=== PATIENT | male | born 1980 ===

== ENCOUNTER 2016-11-23 12:57 | Emergency (ER) | payer OTHER ==
[2016-11-23 13:10] VITALS: BP 132/82; PULSE 106; RESP 18; TEMP 97.9; O2SAT 100
[2016-11-23] MEDS ORDERED: Silver Sulfadiazine 1% Cream (20 gm) TOP STA (13:49)
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
== END 2016-11-23 14:33 | disposition home or self-care (01) ==
LOC: C.ER 12:57
DX: T22.212A Burn of second degree of left forearm, initial encounter (principal); X10.2XXA Contact with fats and cooking oils, initial encounter; Y93.G3 Activity, cooking and baking; Y92.009 Unspecified place in unspecified non-institutional (private) residence as the place of occurrence of the external cause

== ENCOUNTER 2016-12-11 09:32 | Inpatient (IN) | payer OTHER ==
[2016-12-11] MEDS ORDERED: Sodium Chloride 0.9% 1,000 ML IV STA (10:39)
[2016-12-11] MEDS ORDERED: Tetanus/Diphtheria Toxoids 0.5 ml Syringe IM ONE (10:40)
[2016-12-11] MEDS ORDERED: Sodium Chloride 0.9% 1,000 ML ONE (10:47)
--- NOTE | 2016-12-11 11:04 | C.PDOC ---
History Of Present Illness 36 y/o male presents to ED for evaluation of puncture wound to left hand. Patient states he was at work and accidentally hurt himself with a metal sustaining a puncture wound to palm of hand on Saturday. Patient reports wound has white discharge and the hand has become swollen and cannot move it secondary to pain. Patient denies fever, chills, numbness, tingling or any other complaints at this time. Unknown Last Tetanus vaccine Time Seen by Provider: 12/11/16 10:20 Chief Complaint (Nursing): Abnormal Skin Integrity History Per: Patient History/Exam Limitations: no limitations Onset/Duration Of Symptoms: Days Location Of Injury: Left: Hand Quality Of Symptoms: Painful, Swollen Past Medical History Reviewed: Historical Data, Nursing Documentation, Vital Signs Vital Signs: Last Vital Signs Temp 98.9 F 12/11/16 09:48 Pulse 91 H 12/11/16 09:48 Resp 18 12/11/16 09:48 BP 127/78 12/11/16 09:48 Pulse Ox 97 12/11/16 11:15 - Medical History PMH: Gastritis Surgical History: No Surg Hx - [facility] Procedures INJECT/INFUSE NEC (01/29/14) Family History: States: Unknown Family Hx - Social History Hx Tobacco Use: Yes Hx Alcohol Use: Yes Hx Substance Use: Yes - Immunization History Hx Tetanus Toxoid Vaccination: No Hx Influenza Vaccination: No Hx Pneumococcal Vaccination: No Review Of Systems Except As Marked, All Systems Reviewed And Found Negative. Constitutional: Negative for: Fever, Chills Musculoskeletal: Positive for: Hand Pain Skin: Negative for: Rash Physical Exam - Physical Exam Appears: Non-toxic, Other (uncomfortable) Skin: Warm, No Rash, Other (erythematous puncture wound to left palm of hand) Head: Atraumatic, Normacephalic Eye(s): bilateral: Normal Inspection Nose: Normal Oral Mucosa: Moist Neck: Normal ROM, Supple Chest: Symmetrical Extremity: Tenderness (left hand), Capillary Refill, Swelling (left hand), Other (decreased ability to move fingers of the left hand secondary to swelling and pain, palmar puncture wound, no draingea, hand erythema, swelling and tenderness) Extremity: Right: Normal ROM Pulses: Left Radial: Normal, Right Radial: Normal Neurological/Psych: Oriented x3, Normal Speech, Normal Sensation ED Course And Treatment - Laboratory Results Result Diagrams: 12/11/16 11:05 12/11/16 11:05 O2 Sat by Pulse Oximetry: 97 (RA) Pulse Ox Interpretation: Normal Progress Note: IV fluids, Blood work, Tetanus Vaccine, Clindamycin IV, Zosyn IV. Case was d/w Hand surgeon who recommended Zosyn IV, no additional imaging studies are recommended, she will see patient and decide if surgical treatment is needed. Case was d/w Hospitalist who accepted patient to med/surg for observation. Disposition - Disposition Disposition: HOSPITALIZED Disposition Time: 12:35 Condition: FAIR Forms: [facility] (Hungarian) - Clinical Impression Clinical Impression: Puncture wound of left hand with infection - PA / NON DESTRUCTIVE TESTING TECHNICIAN / Resident Statement MD/DO has reviewed & agrees with the documentation as recorded. - Scribe Statement The provider has reviewed the documentation as recorded by the Scribe Gela Flores All medical record entries made by the Scribe were at my direction and personally dictated by me. I have reviewed the chart and agree that the record accurately reflects my personal performance of the history, physical exam, medical decision making, and the department course for this patient. I have also personally directed, reviewed, and agree with the discharge instructions and disposition. Decision To Admit - Pt Status Changed To: Hospital Disposition Of: Observation - . Bed Request Type: Regular Admitting Physician: Jorje Dobson Patient Diagnosis: Puncture wound of left hand with infection
[2016-12-11 11:13] LABS: BASO # 0.1 K/uL (0.0-0.2); EOS # 0.5 K/uL (0.0-0.7); EOS % 4.8 % (0.0-4.0); HEMATOCRIT 39.1 % (35.0-51.0); LYMPH # 1.4 K/uL (1.0-4.3); LYMPH % 12.7 % (20.0-40.0); MEAN CELL VOLUME 95.8 fL (80.0-94.0); MEAN CORPUSCULAR HEMOGLOBIN 32.9 pg (27.0-31.0); MEAN CORPUSCULAR HGB CONC 34.4 g/dL (33.0-37.0); MEAN PLATELET VOLUME 8.1 fL (7.2-11.7); MONO # 1.1 K/uL (0.0-0.8); MONO % 9.9 % (0.0-10.0); RED CELL DISTRIBUTION WIDTH 13.7 % (11.5-14.5)
[2016-12-11 11:18] LABS: CHLORIDE 102 mmol/L (98-107); POTASSIUM 4.1 mmol/L (3.6-5.2); SODIUM 138 mmol/L (132-148)
[2016-12-11 11:20] LABS: BILIRUBIN,TOTAL 0.6 mg/dL (0.2-1.3); GFR AFRICAN-AMERICAN > 60
[2016-12-11 11:21] LABS: ALB/GLOB RATIO 1.3 (1.0-2.1); ALKALINE PHOSPHATASE 60 U/L (38-126); ALT/SGPT 44 U/L (21-72); AST/SGOT 45 U/L (17-59); BLOOD UREA NITROGEN 9 mg/dL (9-20); CARBON DIOXIDE 24 mmol/L (22-30); GLUCOSE,RANDOM 91 mg/dL (75-110); TOTAL PROTEIN 6.7 g/dL (6.3-8.3)
[2016-12-11 11:22] LABS: CALCIUM 8.8 mg/dl (8.6-10.4)
--- NOTE | 2016-12-11 11:59 | RAD ---
PROCEDURE: Left Hand Radiographs. HISTORY: hand injury/infection COMPARISON: None available. FINDINGS: BONES: No acute displaced fracture. JOINTS: No dislocation. SOFT TISSUES: Soft tissue swelling. No evidence of radiopaque foreign body. OTHER FINDINGS: None. IMPRESSION: Soft tissue swelling.
[2016-12-11] MEDS ORDERED: Piperacillin/Tazobact 3.375 gm 100 ML IV STA (12:32)
[2016-12-11] MEDS ORDERED: Piperacillin/Tazobact 3.375 gm 100 ML IVPB ONE ×2 (13:07→16:48)
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
--- NOTE | 2016-12-11 14:42 | CP.PCM.CON ---
History of Present Illness - History of Present Illness History of Present Illness: Plastics/Hand Surgery: Dr Dos Santos Pt seen and examined in ED. Pt is a 36M with no significant PMH who presents to ED for left hand swelling. Pt states last saturday he punctured his hand with a nail. Incident did not occur at work though he cannot describe to me the circumstances under which it occurred. Since then his hand has become progressively swollen, and the pt claims yesterday there was puss draining from the puncture site. He denies any fevers, chills, nausea or vomiting. PMH: none PSH: none Social: Crack and EtOH daily Review of Systems - Review of Systems All systems: reviewed and no additional remarkable complaints except (as per hpi ) Past Patient History - Past Social History Smoking Status: Heavy Smoker > 10 Cigarettes Daily - GASTROINTESTINAL Hx Gastritis: Yes - PSYCHIATRIC Hx Substance Use: Yes - SURGICAL HISTORY Hx Surgeries: No - ANESTHESIA Hx Anesthesia: No Meds Allergies/Adverse Reactions: Allergies Allergy/AdvReac Type Severity Reaction Status Date / Time No Known Allergies Allergy Verified 11/23/16 13:09 - Medications Medications: Current Medications Piperacillin Sod/Tazobactam Sod (Zosyn 3.375 Gm Iv Premix) 3.375 gm in 50 mls @ 100 mls/hr IVPB Q6H [facility] Lorazepam (Ativan) 2 mg PO Q4 PRN PRN Reason: Agitation Lorazepam (Ativan) 1 mg IVP Q2H PRN PRN Reason: Anxiety Physical Exam - Constitutional Appears: Non-toxic, No Acute Distress - ENT Exam ENT Exam: Mucous Membranes Dry - Respiratory Exam Respiratory Exam: absent: Accessory Muscle Use, Respiratory Distress - Cardiovascular Exam Cardiovascular Exam: REGULAR RHYTHM. absent: Tachycardia - Extremities Exam Additional comments: small punctate opening on palmar aspect of first digit above the metatarsal head , globalized hand swelling Results - Vital Signs Recent Vital Signs: Last Vital Signs Temp 98.9 F 12/11/16 09:48 Pulse 91 H 12/11/16 09:48 Resp 18 12/11/16 09:48 BP 127/78 12/11/16 09:48 Pulse Ox 97 12/11/16 12:41 - Labs Result Diagrams: 12/11/16 11:05 12/11/16 11:05 Labs: Laboratory Results - last 24 hr 12/11/16 12/11/16 11:05 11:05 WBC 11.0 H RBC 4.08 L Hgb 13.4 Hct 39.1 MCV 95.8 H D MCH 32.9 H MCHC 34.4 RDW 13.7 Plt Count 296 MPV 8.1 Neut % (Auto) 71.6 Lymph % (Auto) 12.7 L [place] % (Auto) 9.9 Eos % (Auto) 4.8 H Baso % (Auto) 1.0 Neut # 7.9 H Lymph # 1.4 [place] # 1.1 H Eos # 0.5 Baso # 0.1 Sodium 138 Potassium 4.1 Chloride 102 Carbon Dioxide 24 Anion Gap 16 BUN 9 Creatinine 0.6 L Est GFR ( Amer) > 60 Est GFR (Non-Af Amer) > 60 Random Glucose 91 Calcium 8.8 Total Bilirubin 0.6 AST 45 ALT 44 Alkaline Phosphatase 60 Total Protein 6.7 Albumin 3.8 Globulin 2.9 Albumin/Globulin Ratio 1.3 Assessment & Plan - Assessment and Plan (Free Text) Assessment: 36M with left hand cellulitis 2/2 nail puncture Plan: IV Abx 24 hour of observation NPO @ [facility] Possible OR in future pending attending evaluation will d/w Dr Raya Noe, PGY3
--- NOTE | 2016-12-11 14:44 | RAD ---
HISTORY: pre op COMPARISON: 12/15/2014 FINDINGS: LUNGS: No active pulmonary disease. PLEURA: No significant pleural effusion identified, no pneumothorax apparent. CARDIOVASCULAR: Normal. OSSEOUS STRUCTURES: No significant abnormalities. VISUALIZED UPPER ABDOMEN: Normal. OTHER FINDINGS: None. IMPRESSION: No active disease. No interval pathology noted
[2016-12-11] MEDS: Piperacill/Tazo 3.375gm in Dex 3.375 GM/50 ML BAG IVPB SCH ×2 (16:48→20:30)
[2016-12-11] MEDS ORDERED: Vancomycin 1 GM 1 GM/250 ML BAG IVPB ONE (18:23)
--- NOTE | 2016-12-11 21:28 | CP.PCM.PCO ---
Physician Communication Note - Physician Communication Note Physician Communication Note: Patient with left palm puncture wound Assessment/Plan - Assessment and Plan (Free Text) Assessment: PE: Left palm with 2 mm central pustule with surrounding pale pink erythema. Mild tenderness to the hand. Fingers and palm is swollen. No pain with passive extension, no pain along flexor tendon sheath. No fluctulent mass noted. Abraison and area of re-epithelialized skin to the volar and radial side of the forearm with 2 areas of dry eschar present. No cellulitis to forearm. Good range of motion to wrist and elbow. 36 yo with left hand swelling and cellulitis. forearm abrasions. Plan: No tenosynovitis. Cellulitis is resolving. Patient notes that the redness is improved with just 1 dose of IV antibiotics. Warm soaks to the left hand. Medihoney to the forearm once a day. Continue with Zosyn for 24-48 hrs. No surgical intervention warranted. Most likely will be able to be discharged by tomorrow afternoon. Follow up in clinic after discharge.
[2016-12-12] MEDS: Piperacill/Tazo 3.375gm in Dex 3.375 GM/50 ML BAG IVPB SCH ×4 (02:24→20:30)
[2016-12-12 07:23] LABS: BASO # 0.1 K/uL (0.0-0.2); BASO % 1.3 % (0.0-2.0); EOS # 0.6 K/uL (0.0-0.7); EOS % 7.4 % (0.0-4.0); HEMATOCRIT 42.3 % (35.0-51.0); LYMPH # 1.5 K/uL (1.0-4.3); LYMPH % 19.4 % (20.0-40.0); MEAN CELL VOLUME 96.5 fL (80.0-94.0); MEAN CORPUSCULAR HEMOGLOBIN 33.7 pg (27.0-31.0); MEAN PLATELET VOLUME 8.1 fL (7.2-11.7); MONO # 0.9 K/uL (0.0-0.8); MONO % 11.5 % (0.0-10.0); WHITE BLOOD COUNT 7.6 K/uL (4.8-10.8)
--- NOTE | 2016-12-12 07:32 | CP.PCM.PN ---
Subjective - Date & Time of Evaluation Date of Evaluation: 12/12/16 Time of Evaluation: 07:00 - Subjective Subjective: General Surgery note for Dr. Dos Santos Patient seen and examined. Patient's pain controlled. Patient denies any complaints including nausea, vomiting, constipation, diarrhea. Objective - Vital Signs/Intake and Output Vital Signs (last 24 hours): Temp Pulse Resp BP Pulse Ox 97.7 F 71 20 119/65 100 12/11/16 23:40 12/11/16 23:40 12/11/16 23:40 12/11/16 23:40 12/11/16 23:40 - Medications Medications: Current Medications Famotidine (Pepcid) 20 mg PO DAILY [facility] Piperacillin Sod/Tazobactam Sod (Zosyn 3.375 Gm Iv Premix) 3.375 gm in 50 mls @ 100 mls/hr IVPB Q6H [facility] Last Admin: 12/12/16 02:24 Dose: 100 mls/hr Vancomycin HCl 1,000 mg/ (Sodium Chloride) 250 mls @ 166.6 mls/hr IVPB Q12H [facility] Last Admin: 12/12/16 05:04 Dose: 166.6 mls/hr Lorazepam (Ativan) 2 mg PO Q4 PRN PRN Reason: Agitation Lorazepam (Ativan) 1 mg IVP Q2H PRN PRN Reason: Anxiety Pneumococcal Polyvalent Vaccine (Pneumovax 23 Vaccine) 0.5 ml IM .ONCE ONE Stop: 12/13/16 10:01 - Labs Labs: 12/12/16 07:15 12/11/16 11:05 - Constitutional Appears: Non-toxic, No Acute Distress - Head Exam Head Exam: ATRAUMATIC, NORMAL INSPECTION, NORMOCEPHALIC - Eye Exam Eye Exam: EOMI, Normal appearance - ENT Exam ENT Exam: Mucous Membranes Moist - Respiratory Exam Respiratory Exam: NORMAL BREATHING PATTERN. absent: Accessory Muscle Use - Cardiovascular Exam Cardiovascular Exam: REGULAR RHYTHM, RRR, +S1, +S2 - Extremities Exam Extremities Exam: absent: Normal Inspection Additional comments: left arm swelling hang wrapped in clean, dry, intact dressing - Neurological Exam Neurological Exam: Alert, Awake, Oriented x3 - Psychiatric Exam Psychiatric exam: Normal Affect, Normal Mood - Skin Skin Exam: Normal Color, Warm Assessment and Plan - Assessment and Plan (Free Text) Assessment: 36M with left hand cellulitis 2/2 nail puncture Plan: -IV Abx -warm soaks q3h hours to left hand -medihoney application to burn wounds on left forearm will d/w Dr. Dos Santos
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
[2016-12-12 07:58] LABS: CHLORIDE 101 mmol/L (98-107); SODIUM 138 mmol/L (132-148)
[2016-12-12 08:00] LABS: BILIRUBIN,TOTAL 0.9 mg/dL (0.2-1.3); CARBON DIOXIDE 23 mmol/L (22-30); GFR AFRICAN-AMERICAN > 60
[2016-12-12 08:01] LABS: ALB/GLOB RATIO 1.3 (1.0-2.1); ALKALINE PHOSPHATASE 62 U/L (38-126); ALT/SGPT 43 U/L (21-72); AST/SGOT 45 U/L (17-59); BLOOD UREA NITROGEN 8 mg/dL (9-20); CALCIUM 8.8 mg/dl (8.6-10.4); GLUCOSE,RANDOM 93 mg/dL (75-110); TOTAL PROTEIN 6.8 g/dL (6.3-8.3)
[2016-12-12] MEDS ORDERED: Lidocaine 2% Inj (20ml) SC ONE (12:38)
[2016-12-12] MEDS ORDERED: DTap Vaccine 0.5 ml Vial IM ONE (13:12)
[2016-12-12] MEDS: Multiple Vitamins Tab PO SCH (15:18)
[2016-12-12 17:02] VITALS: RESP 20
--- NOTE | 2016-12-12 18:39 | PCM.PROC ---
Incision and Drainage - Time Time Performed: 13:06 - Time Out Time Out: Side verified, Site verified, Patient ID confirmed, Sterile procedures obs. - Procedure Procedure-Incision & Drainage: L hand - Consent obtained Consent obtained: Written - Performed by Performed by: Mid-level Provider - Indications Indications: Cutaneous abscess - Contraindications Contraindications: None - Location Location: Left (hand) - Dimensions Dimensions Length cm: 0.5 Dimensions width cm: 0.5 - Anesthetic Technique Anesthetic Technique: Local - Anesthetic Anesthetic: Lidocaine 2% - Procedure Procedure: Usual prep and drape - Drained Drained: ml pus (0.5) - Post-procedure Post procedure: Tetanus NA (DTAP given) - Complications Complications: None - Patient tolerated procedure Patient tolerated procedure: Well
[2016-12-13] MEDS: Piperacill/Tazo 3.375gm in Dex 3.375 GM/50 ML BAG IVPB SCH ×2 (02:40→07:52)
--- NOTE | 2016-12-13 07:47 | CP.PCM.PN ---
Subjective - Date & Time of Evaluation Date of Evaluation: 12/13/16 Time of Evaluation: 07:47 - Subjective Subjective: PGY1 Medicine Note for Dr. Jany See Objective - Vital Signs/Intake and Output Vital Signs (last 24 hours): Temp Pulse Resp BP Pulse Ox 98.1 F 60 20 119/69 99 12/13/16 00:00 12/13/16 00:00 12/13/16 00:00 12/13/16 00:00 12/13/16 00:00 Intake and Output: 12/13/16 12/13/16 06:59 18:59 Intake Total 350 Balance 350 - Medications Medications: Current Medications Diphtheria/Tetanus/Acell Pertussis (Infanrix) 1 ml IM ONCE ONE Stop: 12/12/16 13:13 Last Admin: 12/12/16 14:46 Dose: Not Given Famotidine (Pepcid) 20 mg PO DAILY [facility] Last Admin: 12/12/16 10:17 Dose: 20 mg Folic Acid (Folic Acid) 1 mg PO DAILY [facility] Last Admin: 12/12/16 15:18 Dose: 1 mg Piperacillin Sod/Tazobactam Sod (Zosyn 3.375 Gm Iv Premix) 3.375 gm in 50 mls @ 100 mls/hr IVPB Q6H [facility] Last Admin: 12/13/16 02:40 Dose: 100 mls/hr Vancomycin HCl 1,000 mg/ (Sodium Chloride) 250 mls @ 166.6 mls/hr IVPB Q12H [facility] Last Admin: 12/13/16 05:43 Dose: 166.6 mls/hr Lorazepam (Ativan) 2 mg PO Q4 PRN PRN Reason: Agitation Lorazepam (Ativan) 1 mg IVP Q2H PRN PRN Reason: Anxiety Multivitamins (Hexavitamin) 1 tab PO DAILY [facility] Last Admin: 12/12/16 15:18 Dose: 1 tab Pneumococcal Polyvalent Vaccine (Pneumovax 23 Vaccine) 0.5 ml IM .ONCE ONE Stop: 12/13/16 10:01 Thiamine HCl (Vitamin B1 Tab) 100 mg PO DAILY [facility] Last Admin: 12/12/16 15:18 Dose: 100 mg - Labs Labs: 12/12/16 07:15 12/12/16 07:15 PT 10.9 SECONDS (9.7-12.2) 12/12/16 07:15 INR 1.0 12/12/16 07:15 APTT 31 SECONDS (21-34) 12/12/16 07:15
[2016-12-13 08:16] VITALS: BP 113/68; PULSE 70; TEMP 98.3; O2SAT 97
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
[2016-12-13] MEDS ORDERED: Pneumococcal 23-Valent Vaccine IM ONE (10:00)
[2016-12-13] MEDS: Multiple Vitamins Tab PO SCH (10:03)
[2016-12-13] MEDS ORDERED: Saccharomyces Boulardi 250 mg Cap PO SCH (11:00)
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
== END 2016-12-13 12:59 | disposition home or self-care (01) | DRG 280 ==
LOC: C.ER 09:32 → C.9E 12:32 → OBSVTOIN 17:37 → C.3T 18:37
PROVIDERS: ADMIT Internal Medicine; ATTEND Internal Medicine
DX: S61.452A Open bite of left hand, initial encounter (principal); L03.114 Cellulitis of left upper limb; F14.10 Cocaine abuse, uncomplicated; W54.0XXA Bitten by dog, initial encounter; F17.210 Nicotine dependence, cigarettes, uncomplicated; F10.10 Alcohol abuse, uncomplicated